=== PATIENT | female | born 1990 | race Asian ===

== ENCOUNTER 2021-01-21 06:27 | Day surgery (SDC) | payer MEDICAID ==
[2021-01-15 14:38] LABS: BASOPHILS # (AUTO) 0.1 X10'3 (0-0.2); BASOPHILS % (AUTO) 0.8 % (0-1); EOSINOPHILS # (AUTO) 0.2 X10'3 (0-0.9); LYMPHOCYTES # (AUTO) 2.4 X10'3 (1.1-4.8); LYMPHOCYTES % (AUTO) 31.5 % (21-51); MEAN CORPUSCULAR HEMOGLOBIN 28.3 PG (27.0-31.0); MEAN CORPUSCULAR HGB CONC 33.9 g/dL (33.0-36.5); MEAN CORPUSCULAR VOLUME 83.6 FL (78-98); MEAN PLATELET VOLUME 7.4 FL (7.4-10.4); MONOCYTES # (AUTO) 0.7 X10'3 (0-0.9); MONOCYTES % (AUTO) 9.2 % (2-12); NEUTROPHILS # (AUTO) 4.4 X10'3 (1.8-7.7); NEUTROPHILS % (AUTO) 56.5 % (42-75); PRE OP HEMATOCRIT 45.2 % (35.0-45.0); PRE OP HEMOGLOBIN 15.3 g/dL (12.0-16.0); PRE OP PLATELET COUNT 319 X10'3 (140-440); RED BLOOD COUNT 5.41 X10'6 (4.20-5.60); RED CELL DISTRIBUTION WIDTH 13.8 % (11.5-14.5)
[2021-01-15 14:40] LABS: HCG SERUM QL NEGATIVE
[2021-01-15 14:46] LABS: ALBUMIN 3.9 G/DL (3.4-5.0); ALBUMIN/GLOBULIN RATIO 0.8 (1.1-1.5); ALKALINE PHOSPHATASE 65 IU/L (46-116); BLOOD UREA NITROGEN 11 MG/DL (7-18); BUN/CREATININE RATIO 13.4 (6.6-38.0); CALCIUM 8.9 MG/DL (8.5-10.1); CHLORIDE 101 MMOL/L (99-107); CREATININE 0.82 MG/DL (0.40-0.90); PRE OP ALT 26 U/L (30-65); PRE OP ANION GAP 10 (8-16); PRE OP AST 19 U/L (10-37); PRE OP BILIRUB, TOTAL 0.6 MG/DL (0.0-1.0); PRE OP GLUCOSE 142 MG/DL (70-104); PRE OP POTASSIUM 3.7 MMOL/L (3.4-5.1); PRE OP SODIUM 138 MMOL/L (135-145); TOTAL CARBON DIOXIDE 27.5 MMOL/L (24-32); TOTAL PROTEIN 8.5 G/DL (6.4-8.2); eGFR 81 ML/MIN
[~2021-01-21] VITALS: Ht 149.9 cm; Wt 76.3 kg
[2021-01-21] VITALS (12 sets, daily range): BP systolic 131–146; BP diastolic 81–104
[~2021-01-21 06:27] MED LIST: LACT1CAP65 PO; ceFOXitin 2GM-NS 100mL ADDvant 100 ML IV ONE; famotidine 20mg tablet PO ONE; ringers solution, lacted 1,000 ML IV SCH
[2021-01-21] MEDS ORDERED: meperidine/PF 25mg/ml syringe IV PRN ×3 (08:15)
[2021-01-21] MEDS ORDERED: ondansetron/PF 4mg/2ml inj IV PRN (08:15)
[2021-01-21] MEDS ORDERED: proCHLORperazine 10 MG/2 ml inj IV PRN (08:15)
[2021-01-21] MEDS ORDERED: morphine 2 MG/ML inj. syringe IV PRN (08:15)
[2021-01-21] MEDS ORDERED: morphine 4 MG/ML inj SYRINge IV PRN (08:15)
[2021-01-21] MEDS ORDERED: ringers solution, lacted 1,000 ML IV SCH (08:15)
[2021-01-21] MEDS ORDERED: fentaNYL/PF 50MCG/1 ML 2ML syringe ONE ×2 (08:20→08:55)
[2021-01-21] MEDS ORDERED: midazolam 1 mg/ML 2ml injection ONE (08:20)
[2021-01-21] MEDS ORDERED: acetaminophen 1,000mg/100ml IV 100 ML IV ONE (08:24)
[2021-01-21] MEDS ORDERED: ondansetron/PF 4mg/2ml inj ONE (08:24)
[2021-01-21] MEDS ORDERED: BUPIVAcaine HCl 0.25%/EPInephrine 1:200,000 inj. 10 ML VIAL ONE (08:24)
[2021-01-21] MEDS ORDERED: LIDOcaine 2% (20mg/ml) 5ml vial ONE (08:24)
[2021-01-21] MEDS ORDERED: propofol inj 20 ML IV ONE (08:24)
[2021-01-21] MEDS ORDERED: dexamethasone sod phosphate 4mg/ml inj. ONE (08:24)
[2021-01-21] MEDS ORDERED: rocuronium 10mg/ml inj IV ONE (08:24)
[2021-01-21] MEDS ORDERED: neostigmine methylsulfate 1 MG/ML 10ml vial ONE (08:25)
[2021-01-21] MEDS ORDERED: glycopyrrolate 0.2mg/ml inj ONE (08:25)
[2021-01-21] MEDS ORDERED: sevoflurane 250ml liquid IH ONE (08:25)
[2021-01-21] MEDS ORDERED: sugammadex 200mg/2ml injection IV ONE (09:34)
--- NOTE | 2021-01-21 09:45 | NUR ---
Received from OR via , accompanied by Anesthesiologist DR DELA CRUZ and report given by Anesthesiolgist. PT PRESENTS WITH 20G R SALVADOR ORTIZ. Addendum: 01/21/21 at 0952 by Laure Lomax RN, RN Amended: Links added.
--- NOTE | 2021-01-21 11:18 | NUR ---
ALL DISCHARGE CRITERIA HAS BEEN MET. VSS, PAIN AT A TOLERABLE LEVEL, VOIDING AND ABLE TO SAFELY AMBULATE AND TRANSFER SELF. IV TAKEN OUT WITHOUT ANY COMPLICATIONS. ALL DISCHARGE INSTRUCTIONS COVERED WITH PATIENT AND ALL QUESTIONS ANSWERED. PATIENT TAKEN OUT VIA WHEELCHAIR TO PERSONAL VEHICLE WHERE FAMILY/FRIEND DROVE PATIENT HOME. Addendum: 01/21/21 at 1131 by Laure Lomax RN, RN Amended: Links added.
== END 2021-01-21 11:18 | disposition home or self-care (01) ==
LOC: PAS 06:27
PROVIDERS: ATTEND Specialist
DX: Z30.2 Encounter for sterilization (principal); E28.2 Polycystic ovarian syndrome; K21.9 Gastro-esophageal reflux disease without esophagitis; E66.9 Obesity, unspecified; Z68.33 Body mass index [BMI] 33.0-33.9, adult; Z20.822 Contact with and (suspected) exposure to COVID-19; Z88.8 Allergy status to other drugs, medicaments and biological substances; Z79.899 Other long term (current) drug therapy
CPT/HCPCS: 36415; 58670; 80053; 82948; 84703; 85025; 86885; 86900; 86901; C9399; J0131; J0694; J1100; J2001; J2250; J2405; J2704; J2710; J3010; J3490; J7120; U0003; U0005; Z7506; Z7508; Z7512; A4618; A7000